=== PATIENT | male | born 1960 | race Caucasian/White ===

== ENCOUNTER 2018-10-21 13:10 | Outpatient (CLI) | payer BC ==
--- NOTE | 2018-10-22 04:20 | Diagnostic Imaging Report ---
ROSA BOWEN [facility] [id number] [id number] Report Submission Date: Oct 21, 2018 2:29:12 PM [facility] Patient Study Name: SERGO AVILES Date: Oct 21, 2018 1:14:05 PM [facility] Modality Type: DX Gender: M Description: CHEST 2VIEW : 56 Institution: [facility] Physician: ROSA BOWEN Examination: PA and lateral chest. History: Evaluate lung lee. POSITIVE TB TEST Comparison exam: None provided. Findings: PA and lateral views of the chest demonstrates a normal cardiac and mediastinal silhouette. Tortuous aorta. No focal infiltrate. Apical lung lee without irregularity. No blunting of the costophrenic margins. Osseous structures are appropriate for age. Impression: No acute pulmonary process. No evidence for active tuberculosis by plain film sensitivity. Electronically signed on Oct 21, 2018 2:29:12 PM [facility] by: Sharif DIALLO
== END 2018-10-21 13:13 ==
LOC: RAD 13:10
PROVIDERS: ATTEND Family Medicine
DX: R76.11 Nonspecific reaction to tuberculin skin test without active tuberculosis (principal)
CPT/HCPCS: 71046